=== PATIENT | female | born 1980 | race Caucasian/White ===

== ENCOUNTER 2018-06-25 22:48 | Emergency (ER) | payer OTHER ==
[2018-06-25] MEDS ORDERED: Lidocaine 1% 20 ML MDV INJECT ONE (23:03)
--- NOTE | 2018-06-25 23:05 | EDM.PDOC ---
ED HPI GENERAL MEDICAL PROBLEM - General Chief Complaint: Bite:Animal, Insect Stated Complaint: BIT ON BACK OF EAR BY THIER DOG Time Seen by Provider: 06/25/18 22:50 Source of Information: Reports: Patient History Limitations: Reports: No Limitations - History of Present Illness INITIAL COMMENTS - FREE TEXT/NARRATIVE: This is a 37-year-old female. Apparently the mastiff that they have at home has become jealous recently. Anytime she gets close to her he will attempt to get him between the 2 of them. Apparently this evening he was jealous of her and bit her left ear. There is some lacerations to the left ear but he did not avulse the ear or any part of the ear. Left Ear Pain Score (Numeric/FACES): 7 - Related Data Allergies Allergy/AdvReac Type Severity Reaction Status Date / Time acetaminophen [From Percocet] Allergy Itching Verified 06/25/18 23:05 oxycodone [From Percocet] Allergy Itching Verified 06/25/18 23:05 Home Meds: Home Meds Amoxicillin/Potassium Clav [Augmentin 875-125 Tablet] 1 each PO Q12H #14 tablet 06/26/18 [Rx] ED ROS GENERAL - Review of Systems Review Of Systems: See Below Constitutional: Denies: Fever, Chills HEENT: Reports: Other (As per history of present illness) Respiratory: Reports: No Symptoms Cardiovascular: Reports: No Symptoms Endocrine: Reports: No Symptoms GI/Abdominal: Reports: No Symptoms : Reports: No Symptoms Musculoskeletal: Reports: No Symptoms Skin: Reports: No Symptoms Neurological: Reports: No Symptoms Psychiatric: Reports: No Symptoms Hematologic/Lymphatic: Reports: No Symptoms ED EXAM, ANIMAL BITE - Physical Exam Exam: See Below Exam Limited By: No Limitations General Appearance: Alert, WD/WN, No Apparent Distress Eye Exam: Bilateral Eye: Normal Inspection Ears: Other (She has a laceration on the anterior penis on the edge also in the posterior ear as well and a small little superficial laceration on the earlobe, there is no penetration into the ear canal, there is no other acute findings and there is no avulsion of any tissue.) Throat/Mouth: Normal Inspection Head: Normocephalic Neck: Supple Respiratory/Chest: No Respiratory Distress Back Exam: Full Range of Motion Extremities: Normal Inspection, Normal Range of Motion Neurological: Alert, Oriented Psychiatric: Anxious Skin Exam: Normal Color, Warm/Dry ED ANIMAL BITE PROCEDURES - Laceration/Wound Repair Left Ear Lac/Wound Length In cm: 3.5 Appearance: Subcutaneous, Linear Distal NVT: Neuro & Vascular Intact Skin Prep: Chlorhexidine (Hibiciens), Saline Exploration/Debridement/Repair: Wound Explored Closed With: Steri-Strips Sterile Dressing Applied: Provider Tetanus Status Addressed: Yes Complications: No Progress/Comments: I placed Steri-Strips on the pinna and behind the ear to adequately close the lacerations and there was good approximation of the edges with Steri-Strips. Course - Vital Signs Last Recorded V/S: Last Vital Signs Temp 97.1 F 06/25/18 22:53 Pulse 87 06/25/18 22:53 Resp 20 06/25/18 22:53 BP 120/68 06/25/18 22:53 Pulse Ox 100 06/25/18 22:53 - Orders/Labs/Meds Meds: Medications Discontinued Medications Generic Name Dose Route Start Last Admin Trade Name Natalie PRN Reason Stop Dose Admin Lidocaine HCl 20 ml 06/25/18 23:03 Xylocaine 1% INJECT 06/25/18 23:04 ONETIME ONE Lidocaine HCl 10 ml 06/25/18 23:08 06/25/18 23:30 Xylocaine 1% INJECT 06/25/18 23:09 10 ml ONETIME ONE Administration Lidocaine HCl Confirm 06/25/18 23:07 06/25/18 23:30 Xylocaine 1% Administered 06/25/18 23:08 Not Given Dose 10 ml .ROUTE .STK-MED ONE - Re-Assessments/Exams Free Text/Narrative Re-Assessment/Exam: 06/26/18 00:16 I spoke to the patient at length that she needs to leave the Steri-Strips on for at least 5 days before she wants to kind of peeled them also that the wound will be closed and hopefully sealed and dry. Because of the possibility of a infection from dog bites I will put her on some Augmentin for 7 days to make sure the ear does not get infected. If there is any problems she knows she needs to return to the ER. Departure - Departure Time of Disposition: 00:17 Disposition: Home, Self-Care 01 Condition: Good Clinical Impression: Laceration of left external ear Qualifiers: Encounter type: initial encounter Qualified Code(s): S01.312A - Laceration without foreign body of left ear, initial encounter - Discharge Information *PRESCRIPTION DRUG MONITORING PROGRAM REVIEWED*: Not Applicable *COPY OF PRESCRIPTION DRUG MONITORING REPORT IN PATIENT POP: Not Applicable Prescriptions: Amoxicillin/Potassium Clav [Augmentin 875-125 Tablet] 1 each PO Q12H #14 tablet Instructions: Animal Bite, [id number] Referrals: PCP,Unknown [Primary Care Provider] - Forms: ED Department Discharge Additional Instructions: Now despite the antibiotics that you'll get tomorrow and start taking the ear can still get infected, take your antibiotics faithfully twice a day, if there is any sort of drainage just pat the ear carefully but do not disturb the Steri- Strips, after 5 days when the wound is dry you may gently peeled the Steri- Strips off if you so desire or you can leave them on until they fall off, you must keep the wounds clean and dry for at least 5 days, if there is any problems return to the ER immediately
[2018-06-25] MEDS ORDERED: Lidocaine 1% 10 ML MDV ONE (23:07)
[2018-06-25] MEDS: Lidocaine 1% 10 ML MDV INJECT ONE (23:30)
[2018-06-26] MEDS: Lidocaine 1% 10 ML MDV INJECT ONE (00:14)
== END 2018-06-26 00:24 | disposition home or self-care (01) ==
LOC: JD.ED 22:48
DX: S00.472A Other superficial bite of left ear, initial encounter (principal); Z88.6 Allergy status to analgesic agent; W54.0XXA Bitten by dog, initial encounter
CPT/HCPCS: 12011; 99283; 99283-25; J2001